=== PATIENT | female | born 1965 | race Caucasian/White ===

== ENCOUNTER 2022-04-29 13:35 | Outpatient (CLI) | payer BC, SELFPAY ==
[2022-04-29 19:46] LABS: Potassium 4.2 mmol/L (3.4-5.0)
== END 2022-04-29 13:36 | disposition home or self-care (01) ==
LOC: ANHGOSHLAB 13:36
PROVIDERS: PCP Internal Medicine; Visit Provider Nurse Practitioner
DX: E87.5 Hyperkalemia (principal)
CPT/HCPCS: 36415; 84132

== ENCOUNTER 2023-10-08 09:03 | Emergency (ER) | payer OTHER, SELFPAY ==
--- NOTE | 2023-10-08 09:08 | ED.FEMALEGU ---
HPI - Female Genitourinary General Chief complaint: Urogenital-Female Stated complaint: uti Time Seen by Provider: 10/08/23 09:10 Source: patient Mode of arrival: ambulatory Limitations: no limitations History of Present Illness HPI Narrative: Myla is a 58-year-old female patient presenting to the clinic today with complaints of possible urinary tract infection. She reports she is having burning with urination, urgency, and cramping for the past 3 days. She has recently been traveling. Is taking azo for her symptoms. Last dose of azo was last night. Denies any fever or chills but does have some low back pain and lower abdominal discomfort in the suprapubic area Related Data Home Medications Medication Instructions Recorded Confirmed multivitamin 1 tablet PO DAILY 05/09/19 09/22/23 homeopathic hormones BYMOUTH 09/22/23 09/22/23 Allergies Allergy/AdvReac Type Severity Reaction Status Date / Time Sulfa (Sulfonamide Allergy Unknown Rash Verified 09/22/23 08:17 Antibiotics) Review of Systems Review of Systems: Pertinent positives per HPI. Patient denies any fever, chills, rash, headache, visual changes, dizziness, cough, runny nose, sore throat, shortness of breath, chest pain, palpitations, nausea, vomiting, diarrhea, constipation. [facility] Past Medical History Medical History Chicken pox Elevated blood sugar Encounter for Essure implantation Fracture of bone of left shoulder HTN (hypertension) Hypothyroidism (acquired) Measles Miscarriage Mumps Right elbow tendonitis Surgical History Surgical History History of elbow surgery right History of foot surgery right 05/2019 History of removal of cyst left breast 1996 History of rotator cuff surgery right rotator cuff and bicep tendon repair S/P lumpectomy, left breast Status post tendon repair Family History Family History Father Hypertension Hypercoagulation syndrome Mother Depression Breast cancer Hypercoagulation syndrome Anxiety Sibling Breast cancer Social History Social History Smoking status: Never smoker Alcohol intake: current Alcohol use details: 2 drinks daily Lack of Transportation: No Lack of Food: Never True Current Housing: I Have Housing Concerned About Future Housing: No Difficulty Paying Gas/Electric Bills: No Difficulty Paying for Meds: No Currently Unemployed: No Education: Bachelor's Degree Difficulty w/ Childcare or Family Care: No Comments At the time of my signature, I reviewed and agree with the nursing past medical, surgical, social, and family history. There is no relevant family history pertinent to the patient complaint. Exam Narrative: General: Well-developed, well nourished, in no apparent distress. Head: Normocephalic, atraumatic. Cardio: Regular rate and rhythm, s1 and s2 normal, no murmur appreciated. Resp: Clear to auscultation bilaterally, no rhonchi, rales, wheezing or rubs. Abdomen: Soft, pliable, bowel sounds present in all quadrants,tender to palpation over the suprapubic area, no organomegly, no CVAT tenderness. Course Course Emergency Course: Portions of this record may have been created with voice recognition software. Level of Care: Express Care Visit Vital Signs Vital signs: Vital signs reviewed MDM - Female Genitourinary MDM Narrative Medical decision making narrative: At the time of visit patient is resting comfortably on the exam table. Patient appears to be nontoxic. Labs: Urine is skewed due to azo-UA positive for leukocytes, nitrates, blood, and glucose. We will send for culture Plan: I suspect patient has UTI. Prescription for Augmentin was sent to the pharmacy. Discussed possibly prescribing
[2023-10-08 09:15] VITALS: BP 149/87; PULSE 101; RESP 16; TEMP 36.7; O2SAT 98
[2023-10-08 09:19] VITALS: BP 149/87; PULSE 101; RESP 16; TEMP 36.7; O2SAT 98
== END 2023-10-08 09:32 | disposition home or self-care (01) ==
PROVIDERS: Emergency Provider Nurse Practitioner Family; PCP Internal Medicine
DX: N30.01 Acute cystitis with hematuria (principal); B96.20 Unspecified Escherichia coli [E. coli] as the cause of diseases classified elsewhere; I10 Essential (primary) hypertension; E03.9 Hypothyroidism, unspecified
CPT/HCPCS: 81003; 87077; 87086; 87088; 87186; 99213; G0463

== ENCOUNTER 2024-01-12 10:25 | Outpatient (CLI) | payer BC, SELFPAY ==
--- NOTE | 2024-01-12 10:36 | ECG_ITS ---
Test Date: 2024-01-12 10:50:07 Measurements Intervals [place] Rate: 89 P: 38 NE: 134 QRS: 25 QRSD: 85 T: 31 QT: 339 QTc: 414 Interpretive Statements SINUS RHYTHM No previous ECG available for comparison Electronically Signed On 01-12-2024 15:14:08 CDT by Matheus Lovelace M.D.
[2024-01-12 11:26] LABS: Anion Gap 11 mmol/L (4-12); Blood Urea Nitrogen 7 mg/dL (7-17); Calcium 8.7 mg/dL (8.4-10.2); Carbon Dioxide 25 mmol/L (22-30); Chloride 95 mmol/L (98-107); Estimated Glomerular Filt Rate > 60; Glucose 172 mg/dL (65-110); Potassium 3.3 mmol/L (3.4-5.0); Sodium 131 mmol/L (137-145)
== END 2024-01-12 10:26 | disposition home or self-care (01) ==
PROVIDERS: Anesthesiology; PCP Internal Medicine; Visit Provider Surgery Plastic and Reconstructive Surgery
DX: Z01.818 Encounter for other preprocedural examination (principal); I10 Essential (primary) hypertension
CPT/HCPCS: 36415; 80048; 93005

== ENCOUNTER 2024-01-17 01:45 | Day surgery (SDC) | payer OTHER, SELFPAY ==
--- NOTE | 2024-01-09 14:26 | SUR.PREOP ---
Report to the Outpatient Waiting Room, entrance under the green pavilion located off [facility], at time ___06____ on date ____01/17/24___. Planned Procedure Time: ____729____. Time changes happen often and if your time is changed the preop area will call you the afternoon before. - You and your visitor will be asked to self-screen and do not enter if you have any COVID symptoms. - A mask is optional within the hospital at this time. Patients may have clear liquids (water, carbonated beverages, clear teas, apple juice) until 3 hours prior to surgery with a maximum of 20 ounces. - NO CLEAR LIQUIDS AFTER 0430 - No food from midnight until time of surgery - Infants may have breast milk until 4 hours before surgery, infant formula 6 hours prior to surgery. - Children will be allowed to drink immediately following surgery. If applicable, please bring a bottle or sippy cup to assist with drinking. Juice, water, soda, and popsicles are readily available. For infants on formula, please bring formula the day of surgery. Pacifiers are allowed. Take the following medications with a SIP of water the morning of surgery: N/A DO NOT STOP ANY OF YOUR OTHER PRESCRIPTION MEDICATIONS PRIOR TO SURGERY ?EXCEPT THE FOLLOWING Medications to discontinue per physician N/A Date to take last dose Please no make-up, nail german, hairspray, perfume, deodorant, or body powder the day of surgery. No jewelry (including any body piercings) or valuables the day of surgery, leave them at home. Please take a shower or bath the night before, or the morning of, surgery with an antibacterial soap. Wear comfortable, loose fitting clothing. Children are encouraged to wear pajamas. - Jewelry must be removed prior to entering the operating room. Rings and piercings that are not removed may be cut off. - The hospital will not accept responsibility for valuables. - Please leave all valuables, including medications, at home the day of surgery. If you are going home after surgery, a licensed furniture mover driver must drive you home. - NO public transportation without another adult if you receive anesthesia. - We recommend that an adult stay with you for 24 hours following discharge. - We also recommend that you do not drive, make important decision, drink alcoholic beverages, or take any drugs that were not prescribed by your health care provider for at least 24 hours after your discharge time. For Pediatric surgeries, we recommend two adults accompany the child home. Follow any additional instructions given to you from your surgeon. If you or anyone in your household have experienced Covid symptoms in the past week, please notify your surgeon or the nurse liaison at the phone number below for possible testing. Telephone instructions given to BLANCHE CARDOSO and asked if any additional questions and then verbalized understanding. Patient advised to call surgeon office or pre surgery nurse liaison [phone] if any additional questions.
[2024-01-09 14:38] VITALS: BMI 23.9
[2024-01-17] VITALS (11 sets, daily range): BP systolic 115–180; BP diastolic 59–99; PULSE 82–108; RESP 12–20; TEMP 36.8–36.9; O2SAT 96–100
[2024-01-17] MEDS: LACTATED RINGERS 1,000 ML 30 ML IV CONT ×2 (06:35→08:20)
[2024-01-17] MEDS: SCOPOLAMINE 1 MG PATCH 1 PATCH TRANSDERM (06:51)
[2024-01-17 06:54] LABS: Sodium 135 mmol/L (137-145)
--- NOTE | 2024-01-17 07:02 | WPDHPUPDATE1 ---
History and Physical Update Update Date/Time: 01/17/24 07:02 History and Physical has been reviewed, including an updated exam of the patient. There are NO changes in the patient's condition. Risks, benefits, and alternatives have been discussed and questions answered. Patient agrees to proceed with procedure.
--- NOTE | 2024-01-17 07:08 | W.PM.PROC2 ---
Procedure Note - Detailed Date of Procedure 01/17/24 Pre-op Diagnosis MICROMASTIA Post-op Diagnosis Same Procedure Performed Bilateral augmentaton mammaplasty Surgeon Marco Antonio Smith MD Anesthesia General Findings Bilateral dual plane 2 Right - REF# [id number] SN [id number] Left - REF# [id number] SN [id number] Description of Procedure She is here today for bilateral breast augmentation. Previously and again today the risks, benefits, alternatives were discussed in extensive detail. I wanted her to be very realistic about the risks involved as well as expectations. Again today we spent extensive time discussing sizing, goals, and profiles making sure we were in full agreement which was no change from preoperatively. We discussed aftercare and what to monitor for. Made sure answered all of her questions to her satisfaction today and consent was obtained. Marked in the preoperative holding area with their verification. The patient was taken to the operating room placed supine on the operating table. Anesthesia was provided by anesthesiology. A surgical time-out was taken. We cleansed the skin and 1% lidocaine and 0.25% Marcaine with epinephrine was used anesthetize as a field block. She was prepped and draped in a standard sterile fashion. Tegaderm nipple Bailey were placed. A 15 blade used to make an incision along the inframammary fold. Dissection was continued at 45 degree angle until the chest wall as identified. I incised the pectoralis major along its inferior border and completely released the inferior border leaving the medial border intact. I created a subpectoral pocket in the appropriate dimensions based on our preoperative planning for the implant. I then copiously irrigated with saline solution and verified a strict hemostasis. Next the use a triple antibiotic and Betadine containing solution to irrigate the pocket. I washed my gloves with the triple antibiotic and Betadine solution. We washed the implant immediately upon opening it with this solution and only opened it when we needed it. I used implant funnel and no-touch technique. The implant was introduced into the pocket using the funnel. Having verified positioning of the implant this was closed using 2-0 PDS followed by 3-0 Monocryl in a running subcuticular 4-0 Monocryl followed by tissue glue. Fluffs and surgical bra were placed. Patient was awoke and taken to PACU without difficulty. All instrument sponge counts were correct at the end of the case. Estimated Blood Loss 20 Drains No Packing No Pathology None sent Complications No immediate complications Condition Stable Disposition PACU
--- NOTE | 2024-01-17 07:19 | WPDANESEPPF ---
Anes - Initial Pre Proc Eval Procedure: Operation Date: 01/17/24 07:30 Proposed Procedures p Bilateral Breast Augmentation - Marco Antonio Smith MD Date/Time: 01/17/24 07:19 Surgeon: Maroc Antonio Smith MD Pre Op Diagnosis: MICROMASTIA Patient Data Age: 58 Gender: F Height: 1.6 m Weight: 59.6 kg Last Vital Signs Temp 98.4 F 01/17/24 06:37 Pulse 82 01/17/24 06:37 Resp 18 01/17/24 06:37 BP 148/95 H 01/17/24 06:37 Pulse Ox 98 01/17/24 06:37 O2 Del Method Room Air 01/17/24 06:37 Allergies Allergy/AdvReac Type Severity Reaction Status Date / Time Sulfa (Sulfonamide Allergy Unknown Rash Verified 01/17/24 06:52 Antibiotics) Home Medications Medication Instructions Recorded Confirmed Type homeopathic hormones 1 1.73 m2 topical DAILY 09/22/23 01/17/24 History venlafaxine 75 mg capsule,extended 75 mg PO DAILY #90 caps 10/05/23 01/09/24 Rx release 24 hr hydrochlorothiazide 12.5 mg tablet 12.5 mg PO DAILY #90 tabs 11/08/23 01/09/24 Rx losartan 100 mg tablet 100 mg PO HS 01/09/24 01/09/24 History Laboratory Tests 01/17/24 06:26 Sodium 135 L mmol/L (137-145) Patient hx anesthesia problems: none Family hx anesthesia problems: none Results Review: All pre-operative results and documents have been reviewed as part of the pre-operative evaluation. [facility] Past Medical History Medical History Chicken pox Elevated blood sugar Encounter for Essure implantation Fracture of bone of left shoulder HTN (hypertension) Hypothyroidism (acquired) Measles Miscarriage Mumps Right elbow tendonitis Surgical History Surgical History History of elbow surgery right History of foot surgery right 05/2019 History of removal of cyst left breast 1995 History of rotator cuff surgery right rotator cuff and bicep tendon repair S/P lumpectomy, left breast Status post tendon repair Family History Family History Father Hypertension Hypercoagulation syndrome Mother Depression Breast cancer Hypercoagulation syndrome Anxiety Sibling Breast cancer Social History Social History Smoking status: Never smoker Alcohol intake: current Alcohol use details: 1 drink daily Lack of Transportation: No Lack of Food: Never True Current Housing: I Have Housing Concerned About Future Housing: No Difficulty Paying Gas/Electric Bills: No Difficulty Paying for Meds: No Currently Unemployed: No Education: Bachelor's Degree Difficulty w/ Childcare or Family Care: No Living arrangements: with family Spiritual care concerns: No Anes - Eval Final PreProcedure Day of Procedure 01/17/24 07:19 Patient weight: normal Heart: regular rate and rhythm Lungs: clear to auscultation Airway: Mallampati scale class II Neurological: alert and oriented Last oral intake: >/= 8 hours ASA classification: II Emergent: no Anesthetic plan: proceed Anesthesia type and monitoring: general LMA and standard monitoring Results Review: All pre-operative results and documents have been reviewed as part of the pre-operative evaluation. Informed Consent: The patient's anesthetic plan and its attendant risks and benefits were discussed with the patient/family/POA. Questions were solicited and answers provided to the satisfaction of the patient/family/POA.
[2024-01-17] MEDS: ceFAZolin 2 GM/D5W 50 ML 2 GM/50 ML BAG IVPB (07:22)
[2024-01-17] MEDS: TRANEXAMIC ACID 1,000MG/ISO100 1,000 MG/100 ML BAG 200 MG IVPB (07:22)
[2024-01-17] MEDS: NACL 0.9% IRRIG POUR BOTTLE 900 ML, GENTAMICIN SULFATE INJ 160 MG, ceFAZolin 2 GM, POVI... IRRIGATION (07:53)
[2024-01-17] MEDS: LIDO 1%/EPINEPHRINE/PF 1:200,000 30 ML VIAL XX (08:06)
[2024-01-17] MEDS: fentaNYL CITRATE INJ (*CRX) 100 MCG/2 ML VIAL 25 MCG IV PUSH (08:49)
[2024-01-17] MEDS: LABETALOL HCL INJ 100 MG/20 ML VIAL IV PUSH ×2 (09:11→09:20)
[2024-01-17] MEDS: oxyCODONE HCL (*CRX) 5 MG TAB IR PO (10:07)
== END 2024-01-17 10:40 | disposition home or self-care (01) ==
PROVIDERS: Anesthesiology; PCP Internal Medicine; Visit Provider Surgery Plastic and Reconstructive Surgery
PROC: (CPT 19325; principal; 2024-01-17 07:30)
DX: Z41.1 Encounter for cosmetic surgery (principal); N64.82 Hypoplasia of breast; I10 Essential (primary) hypertension; E03.9 Hypothyroidism, unspecified
CPT/HCPCS: 19325; 36415; 80048; 84295; 93005; A9270; J0690; J1100; J1170; J1580; J2250; J2371; J2405; J2704; J3010; J7120

== ENCOUNTER 2024-03-26 11:11 | Emergency (ER) | payer BC, SELFPAY ==
[2024-03-26 11:18] VITALS: BP 166/112; PULSE 101; RESP 18; TEMP 36.7; O2SAT 99
--- NOTE | 2024-03-26 11:27 | ED.FEMALEGU ---
HPI - Female Genitourinary General Chief complaint: Urogenital-Female Stated complaint: Uti Symptoms Time Seen by Provider: 03/26/24 11:28 Source: patient, RN notes reviewed and old records reviewed Mode of arrival: ambulatory Limitations: no limitations History of Present Illness HPI Narrative: 58 year old female presents to [facility] care with complaints of 4 day history of urinary tract symptoms which includes urinary urgency, frequency, pain with urination and 2 day history of bilateral flank pain which is non radiating. Patient reports at the first onset of symptoms she has increased water consumption, has not had any fevers or any nausea or vomiting. Patient reports that she took some Azo Tuesday and Tuesday. MD elicited complaint: dysuria and UTI Onset (ago): day(s) (initial symptoms 4 days flank pain 2 days) Location of symptoms: urethra and flank (bilateral) Quality of pain: aching Vaginal discharge: none Vaginal bleeding: none Treatment prior to arrival: OTC urinary analgesics (AZO x 2 days) and other (increased water consumption) Related Data Home Medications Medication Instructions Recorded Confirmed homeopathic hormones 1 1.73 m2 topical DAILY 09/22/23 03/26/24 losartan 100 mg tablet 100 mg PO HS 01/09/24 03/26/24 Allergies Allergy/AdvReac Type Severity Reaction Status Date / Time Sulfa (Sulfonamide Allergy Unknown Rash Verified 03/26/24 11:18 Antibiotics) Review of Systems Review of Systems: CONSTITUTIONAL: Denies fever, chills, or sweats. CARDIOVASCULAR: Denies chest pain, palpitations, or edema. RESPIRATORY: Denies cough or dyspnea. GASTROINTESTINAL: initial suprapubic tenderness which has resolved, no nausea, vomiting, or diarrhea. GENITOURINARY: Reports dysuria, frequency, urgency. Reports bilateral flank pain no visible hematuria. SKIN: Denies rash or itching. MUSCULOSKELETAL: Denies back pain or myalgia. Reports bilateral CVA tenderness NEUROLOGIC: Denies headache All systems reviewed & are unremarkable except as noted in HPI and below PMFSH Past Medical History Medical History Chicken pox Elevated blood sugar Encounter for Essure implantation Fracture of bone of left shoulder HTN (hypertension) Hypothyroidism (acquired) Measles Miscarriage Mumps Right elbow tendonitis Surgical History Surgical History H/O breast augmentation History of elbow surgery right History of foot surgery right 05/2019 History of removal of cyst left breast 1995 History of rotator cuff surgery right rotator cuff and bicep tendon repair S/P lumpectomy, left breast Status post tendon repair Family History Family History Father Hypertension Hypercoagulation syndrome Mother Depression Breast cancer Hypercoagulation syndrome Anxiety Sibling Breast cancer Social History Social History Smoking status: Never smoker Alcohol intake: current Alcohol use details: 1 drink daily Lack of Transportation: No Lack of Food: Never True Current Housing: I Have Housing Concerned About Future Housing: No Difficulty Paying Gas/Electric Bills: No Difficulty Paying for Meds: No Currently Unemployed: No Education: Bachelor's Degree Difficulty w/ Childcare or Family Care: No Living arrangements: with family Spiritual care concerns: No Comments At time of signature, agree with nursing past medical, surgical, social and family history. There is no relevant family history pertinent to the presenting complaint Exam Narrative: GENERAL: Well-appearing, well-nourished, and in no acute distress. HEAD: Normocephalic, atraumatic. NECK: Supple. no lymphadenopathy CHEST: Clear to auscultation. No respiratory distress.SAO2 99% on room air HEART: Regular rate and rhythm. No murmur heard. Normal peripheral pulses. ABDOMEN: Soft, nontender, nondistended, normal active bowel sounds. Reports bilateral CVA tenderness, states initially supra pubic discomfort with burning of urination which has resolved, frequency and urgency EXTREMITIES: Normal range of motion. No edema. SKIN: Warm, dry, no rash. NEURO: No focal deficits. Alert and oriented x3. Course Course Emergency Course: Patient is aware of diagnosis, understands and agrees to treatment plan.? Anticipatory guidance given.? Patient agrees to follow-up as directed and is aware of reasons to seek care at the emergency department. Portions of this record may have been created with voice recognition software Level of Care: Express Care Visit Vital Signs Vital signs: Vital Signs Temperature 36.7 C 03/26/24 11:18 Pulse Rate 101 H 03/26/24 11:18 Respiratory Rate 18 03/26/24 11:18 Blood Pressure 166/112 H 03/26/24 11:18 Pulse Oximetry 99 03/26/24 11:18 Oxygen Delivery Room Air 03/26/24 11:18 Temperature 36.7 C 03/26/24 11:18 Pulse Rate 101 H 03/26/24 11:18 Respiratory Rate 18 03/26/24 11:18 Blood Pressure 166/112 H 03/26/24 11:18 Pulse Oximetry 99 03/26/24 11:18 Oxygen Delivery Room Air 03/26/24 11:18 MDM - Female Genitourinary MDM Narrative Medical decision making narrative: Exam findings and UA show no acute concerns or changes; patient is non-toxic appearing and is in no distress.? Patient is appropriate for outpatient treatment and follow-up. Differential Diagnosis Differential diagnosis: Likely urinary tract infection, cystitis and other (dysuria, bilateral flank pain) Medical Records Attestation: I reviewed the patient's medical records. Lab Data Attestation: I reviewed the patient's lab results. Lab results narrative: urine dip glucose negative, bilirubin negative, ketone negative, specific gravity 1.010, blood negative, pH 7.0,protein negative, urobilinogen 0.2, nitrate negative, leukocyte trace Labs: Lab Results 03/26/24 Range/Units 11:43 POC Urine Color Yellow POC Urine Clarity Clear POC Urine pH 7.0 POC Ur Specif Mcgrath 1.010 POC Urine Protein Negative (Negative) POC Ur Glucose (UA) Negative (Negative) POC Urine Ketones Negative (Negative) POC Urine Blood Negative (Negative) POC Urine Nitrite Negative (Negative) POC Urine Bilirubin Negative (Negative) POC Urine Urobilinogen 0.2 POC U Leukocyte Esteras Trace (Negative) Critical Care Time Critical Care Time Critical Care Time: No Discharge Plan Discharge Clinical Impression: Urinary tract infection Patient Disposition: Home, Self-Care Condition: Stable Instructions: Antibiotic Form, Urinary Tract Infection in Women (ED) Additional Instructions: Increase fluids especially cranberry juice and water Avoid caffeine and carbonated beverages Antibiotic as directed recommend probiotic while taking the prescribed antibiotic and to take with food Tylenol/ibuprofen for pain or fever Follow-up with her primary care provider if further problems or concerns Recheck if you have fever over 101, nausea and vomiting. If your symptoms persist, change or worsen significantly before you can contact your personal physician then please, without delay, go to the emergency department for further evaluation. Follow-up with PCP in 7-10 days or sooner if needed Follow up with PCP soon in regards to your blood pressure which is elevated above threshold for referral. Blood pressure above 120/80 may indicate pre-hypertension. 166/112 Prescriptions: New amoxicillin-pot clavulanate 875-125 mg tablet 1 tablet PO Q12H Qty: 14 0RF No Action homeopathic hormones 1 1.73 m2 topical DAILY Patient Comments: estrogen/testosterone cream and progesterone pill from chiropractor. losartan 100 mg tablet 100 mg PO HS Rx Instructions: TAKE 1 TABLET DAILY venlafaxine 75 mg capsule,extended release 24hr 75 mg PO DAILY Qty: 90 1RF Patient Comments: TAKES ~NOON hydrochlorothiazide 12.5 mg tablet 12.5 mg PO DAILY Qty: 90 1RF Follow-up/Referrals: Alexandre Haro DO [Primary Care Provider] - Time of Disposition: 11:37 Quality Josue Coma Scale Eyes: Open Verbal: Oriented and Alert Motor: Follows Commands [place] Coma Total Score: 15
[2024-03-26 11:49] LABS: EDUAAPPEAR Clear; EDUABILI Negative (Negative); EDUABLOOD Negative (Negative); EDUACOLOR1 Yellow; EDUAGLUCOSE Negative (Negative); EDUAKETONE Negative (Negative); EDUALEUKO Trace (Negative); EDUANITRATE Negative (Negative); EDUAPROTEIN Negative (Negative); EDUAUROBILI 0.2
== END 2024-03-26 11:43 | disposition home or self-care (01) ==
PROVIDERS: Emergency Provider Registered Nurse; PCP Internal Medicine
DX: N39.0 Urinary tract infection, site not specified (principal); I10 Essential (primary) hypertension; E03.9 Hypothyroidism, unspecified
CPT/HCPCS: 81003; 87086; 99213; G0463

== ENCOUNTER 2025-02-14 14:17 | Outpatient (NON) | payer BC, SELFPAY ==
--- OUTSIDE RECORDS SUMMARY | 2025-02-14 16:56 | XMS_ITS | Encounter Summary ---
Author Organization [facility] Address 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 [address] [place] [address] PCP - General Internal Medicine 09/25/18 documented as of this encounter
--- OUTSIDE RECORDS SUMMARY | 2025-02-14 16:56 | XMS_ITS | Encounter Summary ---
Author Organization [facility] Address 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
--- OUTSIDE RECORDS SUMMARY | 2025-02-14 16:56 | XMS_ITS | Encounter Summary ---
Author Organization [employer] [facility] Address [address] [place] [address] Care Team Providers Care Industrial Economist Name Role Phone Alexandre Haro DO Primary Care Provider Encounter Details Date Type Department Care Team (Latest Contact Info) Description 10/28/2004 Outpatient Historical [facility] [facility] Reinaldo Torres MD [address] [facility] [address] [place] [id number] SCREENING MAMM-MAILG NEOPL-OTHER (Primary Dx) Social History Tobacco Use Types Packs/Day Years Used Date Smoking Tobacco: Never Assessed Comments Unknown Sex and Gender Information Value Date Recorded Sex Assigned at Not on file Legal Sex Female 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
--- OUTSIDE RECORDS SUMMARY | 2025-02-14 16:56 | XMS_ITS | Encounter Summary ---
Author Organization [employer] [facility] Address [address] [place] [address] Care Team Providers Care Manager Foreign Name Role Phone Alexandre Haro DO Primary Care Provider Encounter Details Date Type Department Care Team (Late st Contact Info) Description 10/15/2005 Outpatient Historical [facility] Edgar Lara MD Examination of Ears and Hearing (Primary Dx) Social History Tobacco Use Types Packs/Day Years Used Date Smoking Tobacco: Never Assessed Comments Unknown Sex and Gender Information Value Date Recorded Sex Assigned at Not on file Legal Sex Female 4:06 AM CALL CENTER DIRECTOR Gender Identity Not on file Sexual Orientation Not on file documented as of this encounter Plan of Treatment Not on file documented as of this encounter Visit Diagnoses Diagnosis Examination of ears and hearing- Primary documented in this encounter Care Teams Manager Foreign Relationship Specialty Start Date End Date Alexandre Haro DO [address] [facility] [address] [place] [address] PCP - General Internal Medicine 09/25/18 documented as of this encounter
--- OUTSIDE RECORDS SUMMARY | 2025-02-14 16:56 | XMS_ITS | Encounter Summary ---
Author Organization [facility] Address 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
--- OUTSIDE RECORDS SUMMARY | 2025-02-14 16:56 | XMS_ITS | Encounter Summary ---
Author Organization [facility] Address 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
--- OUTSIDE RECORDS SUMMARY | 2025-02-14 16:56 | XMS_ITS | Encounter Summary ---
Author Organization [facility] Address [address] [place] [address] Care Team Providers Care Senior Report Developer Name Role Phone Alexandre Haro DO Primary Care Provider Encounter Details Date Type Department Care Team (Latest Contact Info) Description 04/04/2008 Outpatient Historical HIS [facility] Cruz, Reinaldo Vick MD [address] [facility] [address] [place] [address] Other Screening Mammogram Social History Tobacco Use Types Packs/Day Years Used Date Smoking Tobacco: Never Assessed Comments Unknown Sex and Gender Information Value Date Recorded Sex Assigned at Not on file Legal Sex Female 4:06 AM PERSONAL INJURY LEGAL ASSISTANT Gender Identity Not on file Sexual Orientation Not on file documented as of this encounter Plan of Treatment Not on file documented as of this encounter Procedures Procedure Name Priority Date/Time Associated Diagnosis Comments MAMMO SCREEN BILAT W OR WO CAD Routine 04/04/2008 3:54 PM PERSONAL INJURY LEGAL ASSISTANT documented in this encounter Results * MAMMO DIGITAL SCREEN BILAT (04/04/2008 3:54 PM PERSONAL INJURY LEGAL ASSISTANT) Anatomical Region Laterality Modality Breast Bilateral Other 04/04/2008 3:54 PM PERSONAL INJURY LEGAL ASSISTANT Narrative 04/04/2008 4:08 PM PERSONAL INJURY LEGAL ASSISTANT [facility] [address] [place], [place] [address] Admit Date: 04/04/2008 MYLA CARDOSO Sex: F Admit Prov: REINALDO CRUZ Date: 1965 Primary Care Prov: NOA CARRASCO CMRN: [id number] Room: Yusra N: [id number] IMAGING SERVICES Ordering Prov: REINALDO CRUZ Accession Number: [id number] Interpretation DIGITAL SCREENING MAMMOGRAM WITH COMPUTER-ASSISTED DIAGNOSIS Findings: The breasts were imaged with digital mammographic technique. There are scattered fibroglandular densities. No significant mass, malignant calcification or architectural distortion is noted. The CAD system does not highlight any suspicious areas. Summary: No mammographic evidence of malignancy. There has been no significant change from prior study of 09/26. Recommendations: Bilateral yearly screening mammogram is recommended. Assessment BIRADS: 1-Negative Recommendation: Normal interval follow-up Dictated by: YUMIKO PERERA Electronically signed by: YUMIKO PERERA 04/04/2008 16:08 Transcribed: 04/04/2008 16:08 CXZ Procedure Note Yumiko Perera - 04/04/2008 [address] [place], [place] [address] Admit Date: 04/04/2008 MYLA CARDOSO Sex: F Admit Prov: REINALDO CRUZ Date: 1965 Primary Care Prov: NOA CARRASCO CMRN: [id number] [id number] IMAGING SERVICES Ordering Prov: REINALDO CRUZ Interpretation DIGITAL SCREENING MAMMOGRAM WITH COMPUTER-ASSISTED DIAGNOSIS Findings: The breasts were imaged with digital mammographictechnique. There are scattered fibroglandular densities. No significant mass, malignant calcification or architectural distortion is noted. The CAD system does not highlight any suspicious areas. Summary: No mammographic evidence of malignancy. There has been no significant change from prior study of 09/26. Recommendations: Bilateral yearly screening mammogram is recommended. Assessment BIRADS: 1-Negative Recommendation: Normal interval follow-up Dictated by: YUMIKO PERERA Electronically signed by: YUMIKO PERERA 04/04/2008 16:08 Transcribed: 04/04/2008 16:08 CXZ Reinaldo Cruz MD MAMMO ORDERABLES Final Result documented in this encounter Visit Diagnoses Diagnosis Other screening mammogram documented in this encounter Care Teams Senior Report Developer Relationship Specialty Start Date End Date Alexandre Haro DO [address] [address] PCP - General Internal Medicine 09/25/18 documented as of this encounter
--- OUTSIDE RECORDS SUMMARY | 2025-02-14 16:56 | XMS_ITS | Encounter Summary ---
Author Organization [facility] Address [address] [place] [address] Care Team Providers Care Fiber Product Cutting Machine Operator Name Role Phone Alexandre Haro DO Primary Care Provider Encounter Details Date Type Department Care Team (Late st Contact Info) Description 08/17/2000 Outpatient Historical [facility] Internal Medicine [place] [address] [place] [address] Edgar Lara MD Social History Tobacco Use Types Packs/Day Years Used Date Smoking Tobacco: Never Assessed Comments Unknown Sex and Gender Information Value Date Recorded Sex Assigned at Not on file Legal Sex Female 4:06 AM OFFICIAL GREETER Gender Identity Not on file Sexual Orientation Not on file documented as of this encounter Plan of Treatment Not on file documented as of this encounter Visit Diagnoses Not on filedocumented in this encounter Care Teams Fiber Product Cutting Machine Operator Relationship Specialty Start Date End Date Alexandre Haro DO [address] [facility] [address] [place] [address] PCP - General Internal Medicine 09/25/18 documented as of this encounter
--- OUTSIDE RECORDS SUMMARY | 2025-02-14 16:56 | XMS_ITS | Encounter Summary ---
Author Organization [facility] Address 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
--- OUTSIDE RECORDS SUMMARY | 2025-02-14 16:56 | XMS_ITS | Encounter Summary ---
Author Organization [facility] Address [address] [place] [address] Care Team Providers Care Color Tester Name Role Phone Alexandre Haro DO Primary Care Provider Encounter Details Date Type Department Care Team (Latest Contact Info) Description 11/27/2001 Outpatient Historical HIS [facility] [place] Cruz, Reinaldo Vick MD [address] [facility] [address] [place] [address] SCREENING MAL NEOP-CERVIX (Primary Dx) Social History Tobacco Use Types Packs/Day Years Used Date Smoking Tobacco: Never Assessed Comments Unknown Sex and Gender Information Value Date Recorded Sex Assigned at Not on file Legal Sex Female 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
--- OUTSIDE RECORDS SUMMARY | 2025-02-14 16:56 | XMS_ITS | Encounter Summary ---
Author Organization [facility] Address [address] [place] [address] Care Team Providers Care Scuba Dive Training Instructor Name Role Phone Alexandre Haro DO Primary Care Provider Encounter Details Date Type Department Care Team (Late st Contact Info) Description 11/26/1999 Outpatient Historical [facility] Internal Medicine [place] [address] [place] [address] Edgar Lara MD Social History Tobacco Use Types Packs/Day Years Used Date Smoking Tobacco: Never Assessed Comments Unknown Sex and Gender Information Value Date Recorded Sex Assigned at Not on file Legal Sex Female 4:06 AM HEALTH TECHNICAL WRITER Gender Identity Not on file Sexual Orientation Not on file documented as of this encounter Plan of Treatment Not on file documented as of this encounter Visit Diagnoses Not on filedocumented in this encounter Care Teams Scuba Dive Training Instructor Relationship Specialty Start Date End Date Alexandre Haro DO [address] [facility] [address] [place] [address] PCP - General Internal Medicine 09/25/18 documented as of this encounter
--- OUTSIDE RECORDS SUMMARY | 2025-02-14 16:56 | XMS_ITS | Clinical Summary ---
Author Organization [facility] Administrative Offices Address [address] [place] [address] Care Team Providers Care Meat Manager Name Role Phone Alexandre Haro DO Primary Care Provider Allergies Active Allergy Reactions Criticality Noted Date Comments Sulfa (Sulfonamide Antibiotics) Rash Low 07/21 Medications multivitamin (DAILY-ALLISON) Oral tablet Take 1 Tab by mouth daily. Active venlafaxine (EFFEXOR) 75 mg tablet Take 75 mg by mouth 3 times daily. Active losartan (COZAAR) 100 mg tablet Take 100 mg by mouth daily. Active levothyroxine 50 mcg tablet Take 50 mcg by mouth daily photocopying equipment repairer. Active Active Problems Problem Noted Date Diagnosed Date Lump or mass in breast 08/30/2012 Family History Medical History Relation Name Comments Hypertension Father Breast Cancer Mother recurrence at age 74 Breast Cancer Sister Ovarian Cancer Neg Hx Relation Name Status Comments Father Alive Mother Alive Sister Social History Tobacco Use Types Packs/Day Years Used Date Smoking Tobacco: Never Smokeless Tobacco: Never Tobacco Cessation:Counseling Given: No Alcohol Use Standard Drinks/Week Comments Yes 0 (1 standard drink = 0.6 oz pur e alcohol) SOCIALLY Comments No Sex and Gender Information Value Date Recorded Sex Assigned at Not on file Legal Sex Female 4:06 AM METAL HANGER Gender Identity Not on file Sexual Orientation Not on file Occupation Industry Job Start Date Job End Date Not on file Not on file Not on file Not on file Last Filed Vital Signs Vital Sign Reading Time Taken Comments Blood Pressure 130/74 09/19/2018 10:41 AM CDT Pulse 74 2012 9:42 AM CDT Temperature 36.6 C (97.8 F) 09/18/2012 12:36 PM CDT Respiratory Rate 16 09/18/2012 12:36 PM CDT Oxygen Saturation 100% 09/18/2012 12:36 PM CDT Inhaled Oxygen Concentration - - Weight 65.3 kg (144 lb) 09/19/2018 10:41 AM CDT Height 162.6 cm (5' 4) 09/19/2018 10:41 AM CDT Body Mass Index 24.72 09/19/2018 10:41 AM CDT Plan of Treatment Health Maintenance Due Date Last Done Comments DTAP/TDAP/TD VACCINES (1 - Tdap) 09/25/1982 COLORECTAL SCREENING 09/25/2008 Colorectal Cancer Screening 09/25/2008 FIT-DNA Q 3 years 09/25/2008 FIT/FOBT Q 1 year 09/25/2008 Flex Sig/CT Colonography Q 5 years 09/25/2008 ZOSTER VACCINE (1 of 2) 09/25/2013 PAP SMEAR 07/07/2020 07/07/2017, 04/27/2016 CERVICAL CANCER SCREENING 07/07/2022 HPV/Cotest (21-29) 07/07/2022 07/07/2017, 04/27/2016 HPV/Cotest (30-65) 07/07/2022 07/07/2017, 04/27/2016 BREAST CANCER SCREENING 07/20/2024 07/20/19 24, 03/19/2022, 06/11/2020, Additional history exists INFLUENZA VACCINE (#1) 2024 RSV VACCINE (60+ or ) (1 - 1-dose 75+ series) 09/25/2038 Procedures Procedure Name Priority Date/Time Associated Diagnosis Comments MAMMO 3D DIONNE SCREEN BILAT W OR WO CAD Routine 07/20/2023 7:26 AM METAL HANGER Visit for screening mammogram CERV/VAG CYTOPATH, THIN PREP AND HPV W/RFLX GENOTYPES 16, 18/45 Routine 07/07/2017 2:31 PM METAL HANGER Well woman exam with routine gynecological exam Screening for HPV (human papillomavirus) from Last 3 Months or Most Recently Relevant to Health Maintenance Results * MAMMO 3D DIONNE SCREEN BILAT W OR WO CAD (07/20/2023 7:26 AM METAL HANGER) Anatomical Region Laterality Modality Breast Bilateral Mammography 07/20/2023 7:26 AM METAL HANGER Impressions 07/20/2023 1:28 PM METAL HANGER IMPRESSION: No suspicious findings to suggest malignancy in either breast. Annual mammography is recommended. OVERALL FINAL ASSESSMENT: BI-RADS CATEGORY 1: Negative. Narrative 07/20/2023 1:28 PM METAL HANGER BILATERAL SCREENING DIGITAL MAMMOGRAM WITH 3D TOMOSYNTHESIS AND CAD DATE: 07/20/2023 7:26 AM HISTORY: Routine screening. DICTATION LOCATION: [facility] TECHNIQUE: Full-field digital craniocaudal and mediolateral oblique projections of both breasts were obtained. Low-dose full-field digital breast tomosynthesis examination was performed with 2D and 3D acquisitions. Examination is read in conjunction with computer aided detection. COMPARISON: 03/19/2022 and older. BREAST COMPOSITION: There are scattered areas of fibroglandular density. FINDINGS: No suspicious mass, suspicious microcalcifications, or architectural distortion is identified in either breast. Computer aided detection was used in the interpretation of this examination. Procedure Note Teodora Mora MD - 07/20/2023 BILATERAL SCREENING DIGITAL MAMMOGRAM WITH 3D TOMOSYNTHESIS AND CAD DATE: 07/20/2023 7:26 AM HISTORY: Routine screening. DICTATION LOCATION: [facility] TECHNIQUE: Full-field digital craniocaudal and mediolateral oblique projections of both breasts were obtained. Low-dose full-field digital breast tomosynthesis examination was performed with 2D and 3D acquisitions. Examination is read in conjunction with computer aided detection. COMPARISON: 03/19/2022 and older. BREAST COMPOSITION: There are scattered areas of fibroglandular density. FINDINGS: No suspicious mass, suspicious microcalcifications, or architectural distortion is identified in either breast. Computer aided detection was used in the interpretation of this examination. IMPRESSION: No suspicious findings to suggest malignancy in either breast. Annual mammography is recommended. OVERALL FINAL ASSESSMENT: BI-RADS CATEGORY 1: Negative. Alexandre Haro DO MAMMO ORDERABLES Final Result * CERV/VAG CYTOPATH, THIN PREP AND HPV W/RFLX GENOTYPES 16, 18/45 (CP) (07/07/2017 2:31 PM METAL HANGER) CLINICAL INFORMATION SEE COMMENT 07/12/2017 4:07 PM METAL HANGER [facility] Comment:Information not prov ided LAST MENSTRUAL PERIOD SEE COMMENT 07/12/2017 4:07 PM METAL HANGER [facility] Comment:Information not prov ided PREV PAP: SEE COMMENT 07/12/2017 4:07 PM METAL HANGER [facility] Comment:Information not prov ided PREV BX: SEE COMMENT 07/12/2017 4:07 PM METAL HANGER [facility] Comment:Information not prov ided SOURCE Endocervix 07/12/2017 4:07 PM METAL HANGER [facility] ADEQUACY: SEE COMMENT 07/12/2017 4:07 PM METAL HANGER [facility] Comment: Satisfactory for evaluation. Endocervical/transformation zone component present. Age and/or menstrual status not provided PAP INTERP SEE COMMENT 07/12/2017 4:07 PM METAL HANGER [facility] Comment:Negative for intraep ithelial lesion or malignancy. COMMENT SEE COMMENT 07/12/2017 4:07 PM METAL HANGER [facility] Comment: This Pap test has been evaluated with computer assisted technology. ELECTRONIC PUBLISHING SPECIALIST: SEE COMMENT 2017 4:07 PM METAL HANGER [facility] Comment: BAB, CT(ASCP) CT screening location: [place] [address] Administration [place] [address] HPV E6/E7 Not Detected Not Detected 07/12/2017 4:07 PM METAL HANGER [facility] Comment: This test was performed using the APTIMA HPV Assay ([employer] This assay detects E6/E7 viral messenger RNA (mRNA) from 14 high-risk HPV types (16,18,31,33,35,39,45,51,52,56,58,59,66,68). Genital SWAB OF ENDOCERVIX / Unknown Collection / Unknown 07/07/2017 2:31 PM METAL HANGER 07/07/2017 9:28 PM METAL HANGER Narrative [facility] - 07/12/2017 4:07 PM METAL HANGER Performing Organization Information: Site ID: [facility] Address: [facility] Administration [place] [address] Director: Phil Whitehead MD Randee Villafuerte FOREST MANAGER PATHOLOGY/CYTOLOGY ORDERABLES F inal Result [facility] from Last 3 Months or Most Recently Relevant to Health Maintenance Insurance [facility] [employer] [facility] OA PLUS Advance Directives For more information, please contact: [phone] * Full Code (Latest Code Status on File) Date Activated Date Inactivated Comments 09/18/2012 9:19 AM 09/18/2012 2:40 PM * Full Code Date Activated Date Inactivated Comments 09/18/2012 8:03 AM 09/18/2012 9:19 AM * Full Code Date Activated Date Inactivated Comments 09/18/2012 6:12 AM 09/18/2012 8:03 AM Care Teams Meat Manager Relationship Specialty Start Date End Date Alexandre Haro DO [address] [address] PCP - General Internal Medicine 09/25/18
--- OUTSIDE RECORDS SUMMARY | 2025-02-14 16:56 | XMS_ITS | Encounter Summary ---
Author Organization [facility] Address [address] [place] [address] Care Team Providers Care Cell Phone Repair Technician Name Role Phone Alexandre Haro DO Primary Care Provider Encounter Details Date Type Department Care Team (Late st Contact Info) Description 09/29/2001 Outpatient Historical [facility] Internal Medicine [place] [address] [place] [address] Edgar Lara MD Social History Tobacco Use Types Packs/Day Years Used Date Smoking Tobacco: Never Assessed Comments Unknown Sex and Gender Information Value Date Recorded Sex Assigned at Not on file Legal Sex Female 4:06 AM ENGRAVER COPPERPLATE Gender Identity Not on file Sexual Orientation Not on file documented as of this encounter Plan of Treatment Not on file documented as of this encounter Visit Diagnoses Not on filedocumented in this encounter Care Teams Cell Phone Repair Technician Relationship Specialty Start Date End Date Alexandre Haro DO [address] [facility] [address] [place] [address] PCP - General Internal Medicine 09/25/18 documented as of this encounter
--- OUTSIDE RECORDS SUMMARY | 2025-02-14 16:56 | XMS_ITS | Encounter Summary ---
Author Organization [facility] Address [address] [place] [address] Care Team Providers Care Reliability Specialist Name Role Phone Alexandre Haro DO Primary Care Provider Encounter Details Date Type Department Care Team (Latest Contact Info) Description 10/06/2006 Outpatient Historical [facility] Cruz, Reinaldo Vick MD [address] [facility] [address] [place] [id number] Other Screening Mammogram (Primary Dx) Social History Tobacco Use Types Packs/Day Years Used Date Smoking Tobacco: Never Assessed Comments Unknown Sex and Gender Information Value Date Recorded Sex Assigned at Not on file Legal Sex Female 4:06 AM DIRECTOR BIOLOGICS Gender Identity Not on file Sexual Orientation Not on file documented as of this encounter Plan of Treatment Not on file documented as of this encounter Visit Diagnoses Diagnosis Other screening mammogram- Primary documented in this encounter Care Teams Reliability Specialist Relationship Specialty Start Date End Date Alexandre Haro DO [address] [facility] [address] [place] [address] PCP - General Internal Medicine 09/25/18 documented as of this encounter
--- OUTSIDE RECORDS SUMMARY | 2025-02-14 16:56 | XMS_ITS | Encounter Summary ---
Author Organization [facility] Address 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
--- OUTSIDE RECORDS SUMMARY | 2025-02-14 16:56 | XMS_ITS | Encounter Summary ---
Author Organization [facility] Address [address] [place] [address] Care Team Providers Care Retail Zone Specialist Name Role Phone Alexandre Haro DO Primary Care Provider Encounter Details Date Type Department Care Team (Late st Contact Info) Description 08/08/2007 Outpatient Historical [facility] Reinaldo Cruz MD [address] [facility] [address] [place] [address] Tamie Jarvis MD [address] [facility] [place] [address] Unspecified Contraceptive Surveillance Social History Tobacco Use Types Packs/Day Years Used Date Smoking Tobacco: Never Assessed Comments Unknown Sex and Gender Information Value Date Recorded Sex Assigned at Not on file 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 Gender Identity Not on file Sexual Orientation Not on file documented as of this encounter Plan of Treatment Not on file documented as of this encounter Procedures Procedure Name Priority Date/Time Associated Diagnosis Comments XR HYSTEROSALPINGOGRAM Timed Study 8 10:45 AM CDT documented in this encounter Results * XR HYSTEROSALPINGOGRAM (08/08/2007 10:45 AM CDT) Anatomical Region Laterality Modality Pelvis Other 08/08/2007 10:4 5 AM CDT Narrative 08/09/2007 1:44 PM CDT [place] [id number] [place], [place] [address] Admit Date: 08/08/2007 MYLA CARDOSO Sex: F Admit Prov: REINALDO CRUZ Date: 1965 Primary Care Prov: NOA CARRASCO CMRN: [id number] [facility] [address] [place] [address] IMAGING SERVICES Ordering Prov: N/A Accession Number: [id number] Interpretation HYSTEROSALPINGOGRAM 08/08/2007 History: Post tubal ligation. Findings: A hysterosalpingogram was performed by Dr. Cruz. Spot films were obtained while injecting contrast into the uterus. Portions of radiopaque catheters on the Essure tubal ligation procedure are seen prior to injection. After injection, the uterus distends normally. An inflated balloon is identified. No contrast is seen to egress through the occluded fallopian tubes. Impression: Occluded fallopian tubes status post tubal ligation. . Report revised on 08/09/2007 1:44:45 PM by TAMIE JARVIS Dictated by: TAMIE JARVIS 08/08/2007 11:40 Electronically signed by: TAMIE JARVIS 08/09/2007 13:44 Transcribed: 08/08/2007 16:04 Procedure Note Provider, Historical - 08/09/2007 [place] [id number] [place], [place] [address] Admit Date: 08/08/2007 MYLA CARDOSO Sex: F Admit Prov: REINALDO CRUZ Date: 1965 Primary Care Prov: NOA CARRASCO CMRN: [id number] [facility] [address] [place] [address] IMAGING SERVICES Ordering Prov: N/A Interpretation HYSTEROSALPINGOGRAM 08/08/2007 History: Post tubal ligation. Findings: A hysterosalpingogram was performed by Dr. Cruz. Spotfilms were obtained while injecting contrast into the uterus. Portions of radiopaque catheters on the Essure tubal ligation procedure are seenprior to injection. After injection, the uterus distends normally. Aninflated balloon is identified. No contrast is seen to egress through theoccluded fallopian tubes. Impression: Occluded fallopian tubes status post tubal ligation. . Report revised on 08/09/2007 1:44:45 PM by TAMIE JARVIS Dictated by: TAMIE JARVIS 08/08/2007 11:40 Electronically signed by: TAMIE JARVIS 08/09/2007 13:44 Transcribed: 08/08/2007 16:04 [facility] Reinaldo Cruz MD DIAGNOSTIC IMAGING ORDERABLES Edited documented in this encounter Visit Diagnoses Diagnosis Contraceptive surveillance, unspecified documented in this encounter Care Teams Retail Zone Specialist Relationship Specialty Start Date End Date Alexandre Haro DO [address] [facility] [address] [place] [address] PCP - General Internal Medicine 09/25/18 documented as of this encounter
[2025-02-14 17:22] LABS: Add Urine Microscopic? YES; Appearance Urine Clear (Clear); Glucose Urine UA Negative (Negative); Leukocyte Esterase Ur 1+ LEU/UL (Negative); Nitrate Urine Negative (Negative); Non Pathogenic Casts 0-2; Specific Grav Ur 1.005 (1.001-1.035)
== END 2025-02-14 14:18 | disposition home or self-care (01) ==
PROVIDERS: PCP Internal Medicine; Visit Provider Nurse Practitioner
DX: R30.0 Dysuria (principal)
CPT/HCPCS: 81001; 87086